=== PATIENT | male | born 1990 | race American Indian/Alaskan Native ===

== ENCOUNTER 2016-11-19 07:32 | Emergency (ER) | payer OTHER ==
[2016-11-19 08:25] VITALS: BP 115/72
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
--- NOTE | 2016-11-19 10:27 | XRay Report ---
BILATERAL KNEES, 3 VIEWS History: Bilateral knee pain. Findings: Normal bone mineralization. No acute osseous findings or joint pathology is appreciated. The soft tissues are unremarkable. Impression: Unremarkable bilateral knees.
--- NOTE | 2016-11-19 10:28 | XRay Report ---
AP PELVIS: History: Pelvic pain, hip pain. AP view of the pelvis shows normal pelvic contour and soft tissues. The hips are symmetric and within normal limits as are the sacroiliac joints. IMPRESSION: Normal pelvis.
--- NOTE | 2016-11-19 10:28 | XRay Report ---
CERVICAL SPINE, 3 views: History: Neck pain. Findings: The vertebral bodies, disk spaces, posterior elements and prevertebral soft tissues are unremarkable. The dens is intact. No acute fracture or malalignment is identified. Impression: 1. No evidence for acute injury to the cervical spine.
== END 2016-11-19 11:05 | disposition home or self-care (01) ==
LOC: ED 07:32
DX: S16.1XXA Strain of muscle, fascia and tendon at neck level, initial encounter (principal); M25.552 Pain in left hip; M25.551 Pain in right hip; M25.561 Pain in right knee; M25.562 Pain in left knee; V49.49XA Driver injured in collision with other motor vehicles in traffic accident, initial encounter; Y92.488 Other paved roadways as the place of occurrence of the external cause; Y93.89 Activity, other specified; Y99.9 Unspecified external cause status; Z88.0 Allergy status to penicillin; Z88.2 Allergy status to sulfonamides
CPT/HCPCS: 72040; 72170; 99283